=== PATIENT | female | born 1980 | race Caucasian/White ===

== ENCOUNTER 2020-11-08 09:14 | Emergency (ER) | payer MEDICARE, MEDICAID, SELFPAY ==
[2020-11-08 09:25] VITALS: BP 127/94; PULSE 97; RESP 16; TEMP 36.8; O2SAT 100
--- NOTE | 2020-11-08 10:08 | ED.FEMALEGU ---
HPI - Female Genitourinary General Chief complaint: Urogenital-Female Stated complaint: Poss UTI Time Seen by Provider: 11/08/20 10:03 Source: patient and RN notes reviewed Mode of arrival: ambulatory Limitations: no limitations History of Present Illness HPI Narrative: Patient presents today complaining of dysuria, frequency, malodorous urine since yesterday. Denies hematuria, fever, chills or sweats, nausea or vomiting. States she was on a course of Keflex a few months ago for a sinus infection. History hysterectomy. MD elicited complaint: dysuria Related Data Home Medications Medication Instructions Recorded Confirmed naproxen sodium 220 mg tablet 220 mg PO BID PRN 05/29/20 11/08/20 linaclotide 145 mcg capsule 145 mcg PO DAILY 08/15/20 11/08/20 omeprazole 40 mg capsule,delayed 40 mg PO DAILY 08/15/20 11/08/20 release Allergies Allergy/AdvReac Type Severity Reaction Status Date / Time sulfamethoxazole Allergy Rash Verified 11/08/20 10:09 [From Bactrim] trimethoprim [From Bactrim] Allergy Rash Verified 11/08/20 10:09 Review of Systems Review of Systems: Narrative: CONSTITUTIONAL: Denies body aches, fever, chills, or sweats. EYES: Denies visual changes, redness, or discharge. ENT: Denies rhinorrhea, congestion, sore throat, or otalgia. CARDIOVASCULAR: Denies chest pain, palpitations, or edema. RESPIRATORY: Denies cough or dyspnea. GASTROINTESTINAL: Denies abdominal pain, nausea, vomiting, or diarrhea. GENITOURINARY: + Dysuria, frequency, malodorous urine. Denies hematuria SKIN: Denies rash, itching, or wounds. MUSCULOSKELETAL: Denies back pain, joint pain, or myalgia. NEUROLOGIC: Denies headache, numbness, tingling, or weakness. PSYCH: Denies depression or anxiety. FOR[facility]LY [facility] Past Medical History Medical History Anxiety Arthritis Bulging disc Chronic neck pain Depression Gallbladder disorder Hepatitis C IBS (irritable bowel syndrome) Osteoarthritis PTSD (post-traumatic stress disorder) Surgical History Surgical History H/O section H/O neck surgery H/O: hysterectomy Hx of cholecystectomy [place] teeth extracted Family History Family History (Reviewed 09/05/20 @ 13:57 by Mariana Sanchez [facility]) Mother Osteoarthritis Osteoporosis Hypertension Hyperlipidemia Stomach cancer Father Diabetes mellitus Hyperlipidemia Hypertension Parkinson disease Grandparent Diabetes mellitus Heart failure Grandparent Emphysema lung Social History Social History (Reviewed 09/05/20 @ 13:57 by Mariana Sanchez [facility]) Smoking packs per day: 1 Smoking cigarettes per day: 20.0 Years smoked: 28 Smoking pack-years: 28.00 Smoking status: Current every day smoker Tobacco type: cigarettes Alcohol intake: never Substance use type: does not use Comments At time of signature, I have reviewed and agree with nursing past medical, surgical, social and family history unless otherwise noted. Please see nursing chart for further information. There is no relevant family history pertinent to the presenting complaint Exam Narrative: Exam Narrative: GENERAL: Well-appearing, well-nourished, and in no acute distress. HEAD: Normocephalic, atraumatic. EYES: EOMI. No redness or drainage. Conjunctivae normal. ENT: Mucous membranes pink and moist. NECK: Normal AROM. CHEST: No respiratory distress. Clear to auscultation. HEART: Regular rate and rhythm. No murmur appreciated. Normal peripheral pulses. ABDOMEN: Soft, nondistended, normal active bowel sounds. + Tender suprapubic area. -CVAT MUSCULOSKELETAL: No bony tenderness. EXTREMITIES: Normal range of motion. No edema. SKIN: Warm, dry, no rash. Capillary refill normal. Normal skin turgor. NEURO: No focal deficits. Alert and oriented x3. Gait steady. PSYCH: Normal affect. No signs of depression or anxiety. Course Kasia
== END 2020-11-08 10:18 | disposition home or self-care (01) ==
PROVIDERS: Emergency Provider Nurse Practitioner; PCP Family Medicine
DX: N39.0 Urinary tract infection, site not specified (principal); F17.210 Nicotine dependence, cigarettes, uncomplicated; F41.9 Anxiety disorder, unspecified; M19.90 Unspecified osteoarthritis, unspecified site; Z86.19 Personal history of other infectious and parasitic diseases
CPT/HCPCS: 81003; 87077; 87086; 87088; 87186; 99213; G0463

== ENCOUNTER 2021-08-24 13:32 | Emergency (ER) | payer OTHER, SELFPAY ==
[2021-08-24 13:41] VITALS: BP 151/92; PULSE 107; RESP 16; TEMP 37.3; O2SAT 99
--- NOTE | 2021-08-24 14:07 | ED.EXTPRO ---
HPI - Extremity Problem General Chief complaint: Extremity Problem,Nontraumatic Stated complaint: Leg Pain/Numbess to Leg Time Seen by Provider: 08/24/21 14:30 Source: patient and RN notes reviewed Mode of arrival: ambulatory Limitations: no limitations History of Present Illness HPI Narrative: 41-year-old female presents with concern for numbness to the left medial anterior leg. She reports over the last several months she has had cramping in both legs and feet and has started eating more bananas because she thought her potassium might be low. She reports cramping has lessened, however she now feels a numbness feeling when she touches her left medial anterior lower leg. She denies any weakness, decreased range of motion, decreased sensation or strength. MD Complaint: other (Extremity numbness) Related Data Home Medications Medication Instructions Recorded Confirmed naproxen sodium 220 mg tablet 220 mg PO BID PRN 05/29/20 08/24/21 linaclotide 145 mcg capsule 145 mcg PO DAILY 08/15/20 08/24/21 omeprazole 40 mg capsule,delayed 40 mg PO DAILY 08/15/20 08/24/21 release Allergies Allergy/AdvReac Type Severity Reaction Status Date / Time sulfamethoxazole Allergy Rash Verified 08/24/21 13:56 [From Bactrim] trimethoprim [From Bactrim] Allergy Rash Verified 08/24/21 13:56 Review of Systems Review of Systems: CONSTITUTIONAL: Denies malaise, chills, sweats, or fever. CARDIOVASCULAR: Denies chest pain, palpitations, or edema. RESPIRATORY: Denies cough or dyspnea. SKIN: Denies rash or itching, bruising, redness, swelling. MUSCULOSKELETAL: Reports numb feeling to the left lower leg and intermittent bilateral lower extremity cramping NEUROLOGIC: Denies numbness, weakness All systems reviewed & are unremarkable except as noted in HPI and below PMFSH Past Medical History Medical History Anxiety Arthritis Bulging disc Chronic neck pain Depression Gallbladder disorder Hepatitis C IBS (irritable bowel syndrome) Osteoarthritis PTSD (post-traumatic stress disorder) Surgical History Surgical History H/O section H/O neck surgery H/O: hysterectomy Hx of cholecystectomy [place] teeth extracted Family History Family History Mother Osteoarthritis Osteoporosis Hypertension Hyperlipidemia Stomach cancer Father Diabetes mellitus Hyperlipidemia Hypertension Parkinson disease Grandparent Diabetes mellitus Heart failure Grandparent Emphysema lung Social History Social History Smoking packs per day: 1 Smoking cigarettes per day: 20.0 Years smoked: 28 Smoking pack-years: 28.00 Smoking status: Current every day smoker Tobacco type: cigarettes Alcohol intake: never Substance use type: does not use Comments At time of signature, agree with nursing past medical, surgical, social and family history. There is no relevant family history pertinent to the presenting complaint Exam Narrative: GENERAL: Well-appearing, well-nourished, and in no acute distress. HEAD: Normocephalic, atraumatic. EYES: PERRLA, conjunctivae clear NECK: Supple. CHEST: Speaks in full sentences. No respiratory distress. HEART: Regular rate and rhythm. Normal and equal peripheral pulses. EXTREMITIES: Bilateral lower extremities have grossly normal strength, normal range of motion. No edema or ecchymosis. 5/5 strength with ankle and digit flexion and extension. Normal sensation with sensitivity to light touch and pain. No point tenderness. No open wounds, no skin tenting, no devitalized tissue or atrophy, no trophic changes, no obvious deformity, alignment normal, nearby joints and structures intact. Distal pulses palpable and equal bilaterally, skin warm, dry, pink. Capillary refill less than 3 seconds
== END 2021-08-24 14:50 | disposition home or self-care (01) ==
PROVIDERS: Emergency Provider Nurse Practitioner; PCP Internal Medicine
DX: R25.2 Cramp and spasm (principal); F17.210 Nicotine dependence, cigarettes, uncomplicated; Z79.1 Long term (current) use of non-steroidal anti-inflammatories (NSAID)
CPT/HCPCS: 99213; G0463

== ENCOUNTER 2021-12-21 15:48 | Emergency (ER) | payer OTHER, SELFPAY ==
[2021-12-21 15:57] VITALS: BP 151/98; PULSE 111; RESP 20; TEMP 36.7; O2SAT 99
== END 2021-12-21 16:15 | disposition left against medical advice (07) ==
LOC: EXPBETH 15:54
PROVIDERS: Emergency Provider Registered Nurse; PCP Internal Medicine
DX: Z53.21 Procedure and treatment not carried out due to patient leaving prior to being seen by health care provider (principal)
CPT/HCPCS: 99199

== ENCOUNTER 2022-03-18 19:38 | Emergency (ER) | payer OTHER, SELFPAY ==
[2022-03-18 19:50] VITALS: BP 134/102; PULSE 102; RESP 20; TEMP 37.1; O2SAT 100
--- NOTE | 2022-03-18 20:18 | ED.WOUNDLAC ---
HPI - Wound/Laceration General Chief Complaint: Wound/Laceration Stated Complaint: Swollen jose bite on right wrist Time Seen by Provider: 03/18/22 20:18 Source: patient, RN notes reviewed and old records reviewed Mode of arrival: ambulatory Limitations: no limitations History of Present Illness HPI narrative: 41 year old female who presents to [facility] care with complaints of cat bites which occurred on Friday to right wrist/forearm with puncture nicole X2 to right wrist area with scratches to dorsal aspect of her right hand. Patient reports that she has been cleansing wounds at home with soap and water and using RORY and alcohol to wounds. Patinet states that her tetanus shot is not up to date. She states that pain to cat bite area is 5/10 continuous pain. Onset (ago): day(s) (2) Location: other (right wrist) Patient tetanus UTD: No Associated symptoms: pain Treatments prior to arrival: other (leansing with soap and water and alcohol and application of RORY) Related Data Home Medications Medication Instructions Recorded Confirmed ezetimibe 10 mg tablet 10 mg PO DAILY 12/21/21 03/18/22 gabapentin 400 mg capsule 400 mg PO BID 12/21/21 03/18/22 pantoprazole 40 mg tablet,delayed 40 mg PO QAM 12/21/21 03/18/22 release metoprolol tartrate 50 mg tablet 50 mg PO DAILY 03/18/22 03/18/22 Allergies Allergy/AdvReac Type Severity Reaction Status Date / Time sulfamethoxazole Allergy Rash Verified 03/18/22 20:05 [From Bactrim] trimethoprim [From Bactrim] Allergy Rash Verified 03/18/22 20:05 Review of Systems Review of Systems: CONSTITUTIONAL: Denies fever, chills, or sweats. EYES: Denies visual changes, redness, or discharge. ENT: Denies rhinorrhea, congestion, sore throat, or otalgia. CARDIOVASCULAR: Denies chest pain, palpitations, or edema. RESPIRATORY: Denies cough or dyspnea. GASTROINTESTINAL: Denies abdominal pain, nausea, vomiting, or diarrhea. GENITOURINARY: Denies dysuria or hematuria. SKIN: Denies rash or itching, positive for cat bites and scratches to her right wrist and forearm and dorsal hand MUSCULOSKELETAL: Denies back pain, joint pain, or myalgia. NEUROLOGIC: Denies headache, numbness, or weakness. PSYCHIATRIC: Positive for history of anxiety or depression. All systems reviewed & are unremarkable except as noted in HPI and below PMFSH Past Medical History Medical History Anxiety Arthritis Bulging disc Chronic neck pain Depression Gallbladder disorder Hepatitis C IBS (irritable bowel syndrome) Osteoarthritis PTSD (post-traumatic stress disorder) Surgical History Surgical History H/O section H/O neck surgery H/O: hysterectomy Hx of cholecystectomy [place] teeth extracted Family History Family History Mother Osteoarthritis Osteoporosis Hypertension Hyperlipidemia Stomach cancer Father Diabetes mellitus Hyperlipidemia Hypertension Parkinson disease Grandparent Diabetes mellitus Heart failure Grandparent Emphysema lung Social History Social History Smoking packs per day: 1 Smoking cigarettes per day: 20.0 Years smoked: 28 Smoking pack-years: 28.00 Smoking status: Current every day smoker Tobacco type: cigarettes Alcohol intake: never Substance use type: does not use Comments At time of signature, agree with nursing past medical, surgical, social and family history. There is no relevant family history pertinent to the presenting complaint Exam Narrative: GENERAL: Well-appearing, well-nourished, and in no acute distress. HEAD: Normocephalic, atraumatic. EYES: PERRLA and EOMI. ENT: Nares clear, no rhinorrhea or epistaxis. Mucous membranes moist.TM's normal with good light reflex, throat pink with no lesions or exudates,or tonsil swel
[2022-03-18] MEDS: TETANUS,DIPHTHERIA,AC PERTUSSIS ADULT (0.5 ML) BOOSTRIX IM (20:24)
[2022-03-18 20:30] VITALS: BP 128/88
== END 2022-03-18 20:38 | disposition home or self-care (01) ==
PROVIDERS: Emergency Provider Registered Nurse
DX: S61.531A Puncture wound without foreign body of right wrist, initial encounter (principal); S60.511A Abrasion of right hand, initial encounter; W55.01XA Bitten by cat, initial encounter; Z23 Encounter for immunization; F17.210 Nicotine dependence, cigarettes, uncomplicated; M19.90 Unspecified osteoarthritis, unspecified site
CPT/HCPCS: 90471; 90715; 99213; G0463

== ENCOUNTER 2023-06-21 11:58 | Emergency (ER) | payer MEDICARE, MEDICAID, SELFPAY ==
[2023-06-21 12:00] VITALS: BP 169/97; PULSE 70; RESP 20; TEMP 36.9; O2SAT 99
[2023-06-21 12:29] VITALS: BP 169/97; PULSE 70; RESP 20; TEMP 36.9; O2SAT 99
--- NOTE | 2023-06-21 12:37 | ED.URI ---
HPI - URI/Sore Throat General Chief Complaint: Upper Respiratory Infection Stated Complaint: Cough/Chest Congestion Time Seen by Provider: 06/21/23 12:38 Source: patient Mode of arrival: ambulatory Limitations: no limitations History of Present Illness HPI Narrative: 43-year-old female presented for complaint of cough worsening over the past week. Endorses wheezing. States she has been having allergy symptoms for several weeks, feels now it is in the chest. She states [id number] medications do not help symptoms. Cough is worse at night. Denies chest pain, palpitations, fatigue or fever. Endorses sick contacts with similar symptoms. Patient smokes 2 packs per day. Related Data Home Medications Medication Instructions Recorded Confirmed ezetimibe 10 mg tablet 10 mg PO DAILY 12/21/21 06/21/23 gabapentin 400 mg capsule 400 mg PO TID 12/21/21 06/21/23 alprazolam 0.5 mg tablet 0.5 mg PO 06/21/23 losartan 50 mg tablet 50 mg PO BID 06/21/23 06/21/23 metoprolol tartrate 100 mg tablet 100 mg PO BID 06/21/23 06/21/23 pantoprazole 40 mg tablet,delayed 40 mg PO DAILY 06/21/23 06/21/23 release Allergies Allergy/AdvReac Type Severity Reaction Status Date / Time sulfamethoxazole Allergy Rash Verified 06/21/23 12:30 [From Bactrim] trimethoprim [From Bactrim] Allergy Rash Verified 06/21/23 12:30 Review of Systems Review of Systems: CONSTITUTIONAL: Denies body aches, fever, chills, or sweats. EYES: Denies visual changes, redness, or discharge. ENT: Denies rhinorrhea, congestion, sore throat, or otalgia. CARDIOVASCULAR: Denies chest pain, palpitations, or edema. RESPIRATORY: Reports cough, sob, wheezing. GASTROINTESTINAL: Denies abdominal pain, nausea, vomiting, or diarrhea. GENITOURINARY: Denies dysuria or hematuria. SKIN: Denies rash, itching, or wounds. MUSCULOSKELETAL: Denies back pain, joint pain, or myalgia. NEUROLOGIC: Denies headache, numbness, tingling, or weakness. All systems reviewed & are unremarkable except as noted in HPI and below PMFSH Past Medical History Medical History Anxiety Arthritis Bulging disc Chronic neck pain Depression Gallbladder disorder Hepatitis C IBS (irritable bowel syndrome) Osteoarthritis PTSD (post-traumatic stress disorder) Surgical History Surgical History H/O section H/O neck surgery H/O: hysterectomy Hx of cholecystectomy [place] teeth extracted Family History Family History Mother Osteoarthritis Osteoporosis Hypertension Hyperlipidemia Stomach cancer Father Diabetes mellitus Hyperlipidemia Hypertension Parkinson disease Grandparent Diabetes mellitus Heart failure Grandparent Emphysema lung Social History Social History Smoking packs per day: 1 Smoking cigarettes per day: 20.0 Years smoked: 28 Smoking pack-years: 28.00 Smoking status: Current every day smoker Tobacco type: cigarettes Alcohol intake: never Substance use type: does not use Comments At time of signature, I have reviewed and agree with nursing past medical, surgical, social and family history unless otherwise noted. Please see nursing chart for further information. There is no relevant family history pertinent to the presenting complaint Exam Narrative: GENERAL: Well-appearing, in no acute distress. EYES: EOMI. No redness or drainage. Conjunctivae normal. ENT: Mucous membranes pink and moist. No rhinorrhea. TMs normal bilaterally. Throat normal. Uvula midline. NECK: Normal AROM. Supple. CHEST: No respiratory distress. Wheezing noted to all corona. HEART: Regular rate and rhythm. No murmur appreciated. ABDOMEN: Soft, nontender, nondistended, normal active bowel sounds. EXTREMITIES: Normal range of motion.
== END 2023-06-21 12:55 | disposition home or self-care (01) ==
PROVIDERS: Emergency Provider Nurse Practitioner Family; PCP Internal Medicine
DX: J40 Bronchitis, not specified as acute or chronic (principal); F17.210 Nicotine dependence, cigarettes, uncomplicated; M19.90 Unspecified osteoarthritis, unspecified site; F41.9 Anxiety disorder, unspecified
CPT/HCPCS: 99213; G0463